=== PATIENT | male | born 1960 | race Caucasian/White ===

== ENCOUNTER 2018-10-10 16:15 | Emergency (ER) | payer SELFPAY ==
[2018-10-10 16:32] VITALS: BP 150/96
[2018-10-10] MEDS ORDERED: Tetan/Diph/Pertus SYR(Tdap)* 0.5 ML SYR(BOOSTRIX) use SYR IM ONE ×2 (17:03→17:14)
--- NOTE | 2018-10-10 17:04 | UC ---
Laceration HPI - HPI Summary HPI Summary: 58 yo male presents with left thumb laceration. 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 He bandaged the area and came to . Unsure date of last tetanus. He is right handed. - History Of Current Complaint Chief Complaint: UCLaceration Stated Complaint: THUMB LACERATION Time Seen by Provider: 10/10/18 17:03 Hx Obtained From: Patient Laceration Location: Hand Mechanism Of Injury: Sharp Trauma Onset/Duration: Sudden Onset Severity: Mild Pain Intensity: 1 Pain Scale Used: 0-10 Numeric - Allergies/Home Medications Allergies/Adverse Reactions: Allergies Allergy/AdvReac Type Severity Reaction Status Date / Time shrimp Allergy Hives Uncoded 10/10/18 16:32 PMH/Surg Hx/FS Hx/Imm Hx - Additional Past Medical History Additional PMH: None - Surgical History Surgical History: Yes Surgery Procedure, Year, and Place: Hernia repair - Family History Known Family History: Positive: None - DENIES FAMILY HX OF CARDIAC, RENAL OR RESPIRATORY DISEASE. - Social History Occupation: Employed Full-time Lives: With Family Alcohol Use: Occasionally Substance Use Type: None Smoking Status (MU): Current Every Day Smoker Type: Cigarettes Amount Used/How Often: 3/4 ppd Review of Systems All Other Systems Reviewed And Are Negative: Yes Constitutional: Positive: Negative Skin: Positive: Other - Laceration left thenar Respiratory: Positive: Negative Cardiovascular: Positive: Negative Musculoskeletal: Positive: Negative Neurological: Positive: Negative Psychological: Positive: Negative Physical Exam - Summary Physical Exam Summary: GENERAL: NAD. WDWN. No pain distress. SKIN: Left thenar eminence with 3.5cm linear laceration with 5mm width. No tendon involvement. 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 CHEST: No accessory muscle use. Breathing comfortably and in no distress. CV: Pulses intact. Cap refill <2seconds MSK: FROM left thumb without pain NEURO: Alert. PSYCH: Age appropriate behavior. Triage Information Reviewed: Yes Vital Signs: Initial Vital Signs Temp 99.6 F 10/10/18 16:29 Pulse 94 10/10/18 16:29 Resp 18 10/10/18 16:29 BP 150/96 10/10/18 16:29 Pulse Ox 96 10/10/18 16:29 Vital Signs Reviewed: Yes Laceration Repair - Laceration Repair 1 Description: Linear Laceration Size After Repair: Length (cm) - 3.5 Modified For Repair: No Type Injection: Local Anesthesia Used: 2.0% Lido Irrigation With Pressure Irrigation Device: Yes Closure Material: Sutures - #5 Closure Method: Single Layer Suture Of: Skin Suture Type: Prolene - 5-0 Laceration Course/Dx - Course/Dx Course Of Treatment: The procedure was explained to the pt and all questions were answered. A time out was performed, witnessed, and signed. The area was irrigated with 500mL sterile saline. 1.5mL of 2% lidocaine without epi was administered and good anesthetization was achieved. In the usual sterile fashion, FIVE 5-0 prolene interrupted sutures were placed. The wound was bandaged with telfa. Pt tolerated procedure well. tdap updated today. Given how dirty the wound was will start him with keflex for prophylactic infection. - Diagnosis Provider Diagnosis: Laceration of left hand Discharge - Sign-Out/Discharge Documenting (check all that apply): Patient Departure All imaging exams completed and their final reports reviewed: No Studies - Discharge Plan Condition: Stable Disposition: HOME Prescriptions: Cephalexin CAP* [Keflex CAP*] 500 mg PO BID #14 cap Patient Education Materials: Care For Your Stitches (ED), Laceration (ED) Referrals: Jackson Son MD [Primary Care Provider] - Additional Instructions: If you develop a fever, shortness of breath, chest pain, new or worsening symptoms - please call your PCP or go to the ED. Your blood pressure was high at todays visit. Please see your primary provider within 4 weeks for recheck and re-evaluation. 1) Please keep the area bandaged, clean, dry, and intact for the next 24- 48hours. 2) If you develop a fever, colored or thick discharge, increased pain or swelling - please call your PCP or go to the ED. 3) Please return in 10 days to have your FIVE sutures removed. - Billing Disposition and Condition Condition: STABLE Disposition: Home
[2018-10-10] MEDS ORDERED: Lidocaine 2% PF * 5 ML VIAL INJ ONE (17:06)
== END 2018-10-10 17:38 | disposition home or self-care (01) ==
LOC: UCEAST 16:15
DX: S61.012A Laceration without foreign body of left thumb without damage to nail, initial encounter (principal); W26.8XXA Contact with other sharp object(s), not elsewhere classified, initial encounter; Y92.9 Unspecified place or not applicable
CPT/HCPCS: 12002; 90471; 90715; 99212; G0463

== ENCOUNTER 2019-09-12 08:54 | Emergency (ER) | payer BC ==
[2019-09-12 09:20] VITALS: BP 153/99
[2019-09-12 09:32] LABS: Influenza A Molecular POSITIVE (Negative)
--- NOTE | 2019-09-12 10:10 | UC ---
FLU HPI - HPI Summary HPI Summary: 3 DAYS OF COUGH, CONGESTION, HEADACHE, BODY ACHES, SUBJECTIVE FEVER AND CHILLS. NO FLU SHOT THIS SEASON. HEAVY SMOKER. - History of Current Complaint Chief Complaint: UCGeneralIllness Stated Complaint: FLU SYMPTOMS Time Seen by Provider: 09/12/19 09:49 Hx Obtained From: Patient Onset/Duration: Gradual Onset, Lasting Days, Still Present Severity Currently: Moderate Severity Initially: Moderate Pain Intensity: 5 Pain Scale Used: 0-10 Numeric Associated Signs & Symptoms: Positive: Fever, Myalgia, Cough, Sore Throat, Nasal Congestion, Headache - Allergy/Home Medications Allergies/Adverse Reactions: Allergies Allergy/AdvReac Type Severity Reaction Status Date / Time shrimp Allergy Hives Uncoded 09/12/19 09:12 Home Medications: Home Medications Benzonatate CAP* [Tessalon CAP*] 1 - 2 cap PO TID PRN #30 cap 09/12/19 [Rx] D-Methorphan/PE/Acetaminophen [Cold Multi-Symptom Gelcap] 1 tab PO ONCE [History Confirmed 09/12/19] Oseltamivir CAP* [Tamiflu CAP*] 75 mg PO BID #10 cap 09/12/19 [Rx] predniSONE 50 mg TAB [Deltasone 50 mg TAB] 50 mg PO DAILY #5 tab 09/12/19 [Rx] PMH/Surg Hx/FS Hx/Imm Hx Previously Healthy: Yes - Surgical History Surgical History: Yes Surgery Procedure, Year, and Place: Hernia repair 2012 - Family History Known Family History: Positive: None - DENIES FAMILY HX OF CARDIAC, RENAL OR RESPIRATORY DISEASE. - Social History Alcohol Use: Occasionally Substance Use Type: Marijuana Substance Use Comment - Amount & Last Used: occasional Smoking Status (MU): Current Every Day Smoker Type: Cigarettes Amount Used/How Often: 3/4 ppd Length of Time of Smoking/Using Tobacco: 40 years Review of Systems All Other Systems Reviewed And Are Negative: Yes Constitutional: Positive: Fever, Chills, Fatigue ENT: Positive: Sore Throat, Nasal Discharge Respiratory: Positive: Cough Cardiovascular: Positive: Negative Gastrointestinal: Positive: Negative Musculoskeletal: Positive: Myalgia Neurological/Mental Status: Positive: Headache Physical Exam Triage Information Reviewed: Yes Appearance: No Pain Distress, Well-Nourished, Ill-Appearing - FATIGUED Vital Signs: Initial Vital Signs Temp 100.7 F 09/12/19 09:13 Pulse 105 09/12/19 09:13 Resp 20 09/12/19 09:13 BP 153/99 09/12/19 09:13 Pulse Ox 93 09/12/19 09:13 Laboratory Tests 09/12/19 09:27 Influenza A (Rapid) Positive H Vital Signs Reviewed: Yes Eyes: Positive: Conjunctiva Clear ENT: Positive: Hearing grossly normal, Pharynx normal, TMs normal Neck: Positive: Supple, Nontender, No Lymphadenopathy Respiratory Exam: Normal Cardiovascular: Positive: Tachycardia Abdomen Description: Positive: Soft Musculoskeletal: Positive: No Edema Neurological: Positive: Alert Psychological: Positive: Age Appropriate Behavior Skin: Negative: Rashes Flu Course/Dx - Course Course Of Treatment: SWAB POSITIVE FOR INFLUENZA A. PATIENT IS OUTSIDE THE WINDOW FOR TAMIFLU HOWEVER GIVEN HE IS A LONG TIME HEAVY SMOKER AND LIKELY HAS UNDERLYING LUNG DISEASE WILL GO AHEAD AND TREAT WITH TAMIFLU TWICE DAILY FOR 5 DAYS. PREDNISONE FOR AIRWAY INFLAMMATION AND TESSALON FOR COUGH. OTC MEDS NEEDED FOR FEVER AND DISCOMFORT. ENCOURAGED HYDRATION, REST. 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 FOLLOW-UP IF NOT IMPROVING EXPECTED. - Differential Dx/Diagnosis Provider Diagnosis: Influenza A Discharge ED - Sign-Out/Discharge Documenting (check all that apply): Patient Departure All imaging exams completed and their final reports reviewed: No Studies - Discharge Plan Condition: Stable Disposition: HOME Prescriptions: Benzonatate CAP* [Tessalon CAP*] 1 - 2 cap PO TID PRN #30 cap PRN Reason: Cough Oseltamivir CAP* [Tamiflu CAP*] 75 mg PO BID #10 cap predniSONE 50 mg TAB [Deltasone 50 mg TAB] 50 mg PO DAILY #5 tab Patient Education Materials: Influenza (ED) Forms: *Work Release Referrals: Jackson Son MD [Primary Care Provider] - If Needed Additional Instructions: SWAB POSITIVE FOR INFLUENZA A. TAMIFLU TWICE DAILY FOR 5 DAYS. OTC MEDS NEEDED FOR FEVER, BODY ACHES. TESSALON FOR COUGH AND PREDNISONE TO HELP WITH AIRWAY INFLAMMATION. STAY WELL HYDRATED AND RESTED. SEEK FOLLOW-UP IF YOU ARE NOT IMPROVING EXPECTED. - Billing Disposition and Condition Condition: STABLE Disposition: Home
== END 2019-09-12 10:22 | disposition home or self-care (01) ==
LOC: UCEAST 08:54
DX: J10.1 Influenza due to other identified influenza virus with other respiratory manifestations (principal); F17.210 Nicotine dependence, cigarettes, uncomplicated; Z91.013 Allergy to seafood
CPT/HCPCS: 99212; G0463